=== PATIENT | female | born 1975 | race Asian ===

== ENCOUNTER 2020-03-21 09:04 | Emergency (ER) | payer OTHER ==
[~2020-03-21] VITALS: Ht 162.6 cm; Wt 73.9 kg
[2020-03-21 09:15] VITALS: TEMP 96.9
[2020-03-21 11:13] VITALS: BP 156/88
== END 2020-03-21 11:13 | disposition home or self-care (01) ==
LOC: ED 09:04 → EDBD 09:04 → ED 11:13
DX: K29.60 Other gastritis without bleeding (principal); K21.9 Gastro-esophageal reflux disease without esophagitis
CPT/HCPCS: 99282; 99283